=== PATIENT | female | born 1990 | race Caucasian/White ===

== ENCOUNTER 2017-01-07 14:27 | Emergency (ER) | payer OTHER ==
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
[~2017-01-07 14:27] MED LIST: DEPO SHOT; E.E.S. 400400 MG PO; NO MEDICATIONS; PHENERGAN25 MG PO; PRENATAL1 TA1 PO
== END 2017-01-07 14:39 | disposition home or self-care (01) ==
LOC: SED 14:27
DX: S50.02XA Contusion of left elbow, initial encounter (principal); B19.20 Unspecified viral hepatitis C without hepatic coma; Z86.73 Personal history of transient ischemic attack (TIA), and cerebral infarction without residual deficits; W23.0XXA Caught, crushed, jammed, or pinched between moving objects, initial encounter; Y92.410 Unspecified street and highway as the place of occurrence of the external cause
CPT/HCPCS: 29260; 73080; 99283

== ENCOUNTER 2017-01-16 22:48 | Emergency (ER) | payer OTHER | END 2017-01-17 00:14 | disposition left against medical advice (07) | LOC: SED 22:48 | DX: Z53.21 Procedure and treatment not carried out due to patient leaving prior to being seen by health care provider (principal) ==

== ENCOUNTER 2017-02-03 04:11 | Emergency (ER) | payer OTHER ==
[2017-02-03 04:33] LABS: URINE SOURCE CLEAN CATCH
[2017-02-03 04:36] LABS: URINE APPEARANCE CLEAR; URINE BILIRUBIN NEG (NEG); URINE BLOOD TRACE-INTACT (NEG); URINE COLOR YELLOW; URINE GLUCOSE NEG (NORM); URINE KETONE NEG (NEG); URINE LEUKOCYTE ESTERASE NEG (NEG); URINE NITRATE NEG (NEG); URINE PROTEIN NEG (NEG); URINE SPECIFIC GRAVITY <=1.005 (1.003-1.035); URINE UROBILINOGEN 0.2 MG/DL (NORM)
[2017-02-03 04:38] LABS: MICRO INDICATED? NO
[2017-02-03 04:46] LABS: AMPHETAMINE POS (NEG); BARBITURATES NEG (NEG); BENZODIAZEPINES NEG (NEG); COCAINE NEG (NEG); MARIJUANA NEG (NEG); OPIATES NEG (NEG); TRICYCLIC ANTIDEPRESSANTS NEG (NEG); U METHADONE NEG (NEG)
== END 2017-02-03 09:20 | disposition home or self-care (01) ==
LOC: SED 04:11
PROVIDERS: Emergency Medicine
DX: F10.129 Alcohol abuse with intoxication, unspecified (principal); F31.9 Bipolar disorder, unspecified; B19.20 Unspecified viral hepatitis C without hepatic coma; F17.200 Nicotine dependence, unspecified, uncomplicated; Z88.0 Allergy status to penicillin; Z88.1 Allergy status to other antibiotic agents; Z88.8 Allergy status to other drugs, medicaments and biological substances
CPT/HCPCS: 80307; 81003; 84703; 99283

== ENCOUNTER 2017-02-19 12:55 | Emergency (ER) | payer OTHER | END 2017-02-19 13:55 | disposition left against medical advice (07) | LOC: CED 12:55 | DX: F15.10 Other stimulant abuse, uncomplicated (principal); Z86.19 Personal history of other infectious and parasitic diseases; Z88.0 Allergy status to penicillin; Z88.1 Allergy status to other antibiotic agents | CPT/HCPCS: 99282 ==

== ENCOUNTER 2017-03-03 07:19 | Emergency (ER) | payer OTHER ==
--- NOTE | ~2017-03-03 | EKG ---
PATIENT: CHICHI LAMA UNIT #: [id number] Ventricular Rate: 117 BPM Atrial Rate: 117 BPM P-R Interval: 126 ms QRS Duration: 92 ms Q-T Interval: 338 ms QTC Calculation(Bezet): 471 ms P Butler: 74 degrees Calculated R Butler: 68 degrees Calculated T Butler: 70 degrees Diagnosis Line: Sinus tachycardia Diagnosis Line: Otherwise normal ECG Diagnosis Line: No previous ECGs available Diagnosis Line: Confirmed by DARNELL WOODWARD MD ([id number]) on Diagnosis Line: 03/04/2017 11:06:57 AM INTERPRETING MD: CRISSY SOTO
[2017-03-03 08:43] LABS: ALBUMIN SERUM 4.3 g/dL (3.5-5.0); ALKALINE PHOSPHATASE 106 U/L (32-92); ALT (SGPT) 49 U/L (10-40); AST (SGOT) 47 U/L (10-42); BILIRUBIN, DIRECT 0.1 mg/dL (0.0-0.2); BILIRUBIN,INDIRECT 0.5 mg/dL (0.0-0.9); BILIRUBIN,TOTAL 0.6 mg/dL (0.2-2.0); BLOOD UREA NITROGEN 14 mg/dL (9-23); CALCIUM SERUM 9.3 mg/dL (8.4-10.2); CARBON DIOXIDE 26 mmol/L (22-31); CHLORIDE 103 mmol/L (100-111); GLOM FILT RATE Estimated 78.8 mL/min (>60); GLUCOSE FASTING 113 mg/dL (70-110); POTASSIUM 3.1 mmol/L (3.5-5.1); SALICYLATE <4.0 mg/dL; SODIUM 137 mmol/L (135-145)
[2017-03-03 08:46] LABS: ACETAMINOPHEN <10 ug/mL; ALCOHOL BLOOD <5 mg/dL (0)
== END 2017-03-03 16:10 | disposition home or self-care (01) ==
LOC: CED 07:19
PROVIDERS: Emergency Medicine
DX: F15.10 Other stimulant abuse, uncomplicated (principal); Z88.0 Allergy status to penicillin; Z88.1 Allergy status to other antibiotic agents; Z88.8 Allergy status to other drugs, medicaments and biological substances
CPT/HCPCS: 36415; 80048; 80076; 93005; 96361; 96374; 99285; G0480; J2060